=== PATIENT | female | born 1940 | race Caucasian/White ===

== ENCOUNTER 2017-05-27 13:40 | Emergency (ER) | payer MEDICARE, OTHER | END 2017-05-27 15:46 | disposition home or self-care (01) | LOC: D.ER 13:40 | DX: L03.115 Cellulitis of right lower limb (principal) ==

== ENCOUNTER → 2018-06-11 10:28 | Outpatient (CLI) | payer MEDICARE, OTHER | END | disposition home or self-care (01) | LOC: D.CT 10:28 | DX: I73.9 Peripheral vascular disease, unspecified (principal) ==